=== PATIENT | male | born 2000 | race Caucasian/White ===

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

== ENCOUNTER 2022-10-21 15:04 | Emergency (ER) | payer OTHER, SELFPAY ==
[2022-10-21 15:30] VITALS: BP 144/80; PULSE 73; RESP 20; TEMP 36.6; O2SAT 99
--- NOTE | 2022-10-21 15:51 | EXP.UTC ---
Discharge Plan Disposition Patient Disposition: Home, Self-Care Condition: Good Prescriptions Prescriptions: New flyarqugjnhukiz-rkolrehsm-IZ [Bromfed DM] 2-30-10 mg/5 mL Syrup 10 ml PO Q4H PRN (Reason: Cough) Qty: 240 0RF guaifenesin [Mucinex] 600 mg tablet extended release 12hr 1,200 mg PO BID PRN (Reason: cough) Qty: 20 0RF azithromycin [Zithromax Z-Bucky] 250 mg tablet See Rx Instructions .ROUTE .COMPLEX 5 Days Qty: 6 0RF Rx Instructions: For 250 mg dose pack: take 500 mg today (day 1), then 250 mg for 4 days (days 2-5) prednisone [prednisone] 20 mg tablet 20 mg PO BID 5 Days Qty: 10 0RF albuterol sulfate [Proventil HFA] 90 mcg/actuation HFA aerosol inhaler 1 - 2 inh inhalation Q6H PRN (Reason: shortness of breath or wheezing) Qty: 8.5 0RF Referrals Follow up/Referrals: Donte Ramos MD [Primary Care Provider] - See instructions Activity Restrictions/Add. Instructions Additional Instructions/Restrictions: Start antibiotic today. Be sure to complete entire prescription even if feeling better Monitor temp. Tylenol every 4 hours as needed and / or ibuprofen every 6 hours as needed ( As long as your primary care physician has told you that it ok to take both. For fever/aches/pains ER if no less than 101 despite Tylenol or Motrin Humidifier/vaporizer or hot steamy shower Inhaler every 4-6 hours as needed like we discussed. If unsure how to use it, ask pharmacist to demonstrate how. Should help open airways and improve cough, wheezing, and shortness of breath Mucinex during the day for your cough and cough suppressant only at night. Be sure to drink lots of water. *Bromfed may cause drowsiness. Know how it effects you (your child) before driving, caring for small child, or sending your child to school. Not other antihistamines/allergy medications while taking bromfed *Start steroid tomorrow. Helps with inflammation therefore, cough and wheezing. Follow directions on the package. Reviewed side effects. Patient reports taking them before. Follow up IMMEDIATELY for new or worsening of symptoms OR no noticeable improvement over the next 48-72 hours. 911 immediately for any life threatening symptoms such as chest pain or difficulty breathing Clinical Impressions Clinical Impression: Bronchitis Sinusitis Qualifiers: Sinusitis location: unspecified location Chronicity: unspecified Qualified Code(s): J32.9 - Chronic sinusitis, unspecified Instructions Patient Instructions: Acute Bronchitis, DI for Sinusitis Discharge ED Provider: Charito Rutledge [facility] [place] General Stated complaint: congestion Mode of Arrival: Ambulatory Source of Information: Patient Limitations: No Limitations Time Seen by Provider: 10/21/22 15:51 Description of Symptoms (Recalled from Triage Doc. by RN): PATIENT C/O CHEST/SINUS CONGESTION, SOA, AND TIREDNESS SINCE WEDNESDAY HEENT Symptoms (Recalled from RN notes): Yes Resp Symptoms (Recalled from RN notes): Yes Skin Symptoms (Recalled from RN notes): No MS Symptoms (Recalled from RN notes): No Functional Status (Recalled from RN notes): WNL History of Present Illness Provider Complaint: Patient states that he has been having cough, chest congestion, sinus congestion and drainage and at times with walking distance feels SOA States that at times he will cough up some mucous States that today he wasnt feeling any better so he came in to get checked Related Data Previous Rx's Medication Instructions Recorded albuterol sulfate 90 mcg/actuation 1 - 2 inh inhalation Q6H PRN 10/21/22 aerosol inhaler (Proventil HFA) shortness of breath or wheezing #8.5 grams azithromycin 250 mg tablet See Rx Instructions PO .COMPLEX 5 10/21/22 (Zithromax Z-Bucky) days #6 tabs cvtbcbowooxudjv-kddrzogfxetzsce-WJ 10 ml PO Q4H PRN Cough #240 mL 10/21/22 2 mg-30 mg-10 mg/5 mL oral syrup (Bromfed DM) guaifenesin 600 mg table
[2022-10-21 16:15] VITALS: BP 144/80; PULSE 73; RESP 20; TEMP 36.6; O2SAT 99
== END 2022-10-21 16:30 | disposition home or self-care (01) ==
PROVIDERS: Emergency Provider Nurse Practitioner; PCP Family Medicine
DX: J20.9 Acute bronchitis, unspecified (principal); F17.210 Nicotine dependence, cigarettes, uncomplicated
CPT/HCPCS: 96372; 99212; 99214; G0463; J0696

== ENCOUNTER 2022-11-16 12:30 | Emergency (ER) | payer OTHER, SELFPAY ==
[2022-11-16 12:30] VITALS: BP 140/67; PULSE 80; RESP 16; TEMP 36.6; O2SAT 100; BMI 19.5
--- NOTE | 2022-11-16 12:41 | XR_ITS ---
FINAL REPORT CLINICAL HISTORY: pain, stepped thru box FINDINGS: Right foot Three views were obtained. There is no acute fracture or dislocation. The joint spaces appear normal. No soft tissue abnormality is identified. IMPRESSION: No acute process. Reviewed, Interpreted and Dictated by Tamir Koch III, MD Transcribed by Dina Zeng Authenticated and [facility]
--- NOTE | 2022-11-16 12:41 | XR_ITS ---
FINAL REPORT CLINICAL HISTORY: painin heel, stepped thru box FINDINGS: Right ankle Three views were obtained. There is no acute fracture or dislocation. The joint spaces appear normal. No soft tissue abnormality is identified. IMPRESSION: No acute process. Reviewed, Interpreted and Dictated by Tamir Koch III, MD Transcribed by Dina Zeng Authenticated and [facility]
--- NOTE | 2022-11-16 12:45 | EXP.UTC ---
Discharge Plan Disposition Patient Disposition: Home, Self-Care Condition: Good Prescriptions Prescriptions: No Action yqexnhzulpydvuy-cdvjegion-TD [Bromfed DM] 2-30-10 mg/5 mL Syrup 10 ml PO Q4H PRN (Reason: Cough) Qty: 240 0RF guaifenesin [Mucinex] 600 mg tablet extended release 12hr 1,200 mg PO BID PRN (Reason: cough) Qty: 20 0RF azithromycin [Zithromax Z-Bucky] 250 mg tablet See Rx Instructions .ROUTE .COMPLEX 5 Days Qty: 6 0RF Rx Instructions: For 250 mg dose pack: take 500 mg today (day 1), then 250 mg for 4 days (days 2-5) prednisone [prednisone] 20 mg tablet 20 mg PO BID 5 Days Qty: 10 0RF albuterol sulfate [Proventil HFA] 90 mcg/actuation HFA aerosol inhaler 1 - 2 inh inhalation Q6H PRN (Reason: shortness of breath or wheezing) Qty: 8.5 0RF Referrals Follow up/Referrals: Miguel A Santos DO [Staff Physician] - See instructions Sara Palencia DPM [Staff Physician] - See instructions Donte Ramos MD [Primary Care Provider] - See instructions Activity Restrictions/Add. Instructions Additional Instructions/Restrictions: *No weight bearing *RICE, Rest the extremity, Ice 15-20 minutes 3-4 times daily, Compress- wear the shona wrap as discussed as much as possible to help reduce swelling and pain, Elevate the extremity when at rest *Walking boot is for support and help control swelling, use it except in the shower. Be sure that is not to tight but not to loose either *Elevate when resting? *Ibuprofen 600-800mg every 6-8 hours as needed for pain an inflammation. If need something more can take Tylenol in between doses of Ibuprofen to help Immediately follow up with your family doctor for new or worsening of symptoms, or no noticeable improvement over the next 3-5 days Follow up with Podiatry or Orthopedics You was given the number and two providers above to call the office for appoitment Clinical Impressions Clinical Impression: Contusion of foot Qualifiers: Encounter type: initial encounter Laterality: right Qualified Code(s): S90.31XA - Contusion of right foot, initial encounter Stand Alone Forms Stand Alone Forms: Work/School Release Instructions Patient Instructions: How to Use Crutches, How To Perform RICE (Rest, Ice, Compress, Elevate), How to Use a Walking Boot Discharge ED Provider: Charito Rutledge [facility] [place] HPI General Stated complaint: AO 11/15, right foot pain Mode of Arrival: Ambulatory Source of Information: Patient Limitations: No Limitations Time Seen by Provider: 11/16/22 12:45 Description of Symptoms (Recalled from Triage Doc. by RN): Patient states he stomped down his right foot on concrete and now he can't apply pressure to his heel, can't bend his toes and it is swollen. HEENT Symptoms (Recalled from RN notes): No Resp Symptoms (Recalled from RN notes): No Skin Symptoms (Recalled from RN notes): No MS Symptoms (Recalled from RN notes): Yes Functional Status (Recalled from RN notes): wnl History of Present Illness Provider Complaint: Patient states that yesterday he hurt his finger on and box and got aggravated and went to stomp on the box and his foot went through it and hit the concrete States that now he is having pain and swelling with bruising that starts around midfoot and goes back into his heel and ankle area States that he has bruising around the bottom of his foot and heel area Related Data Previous Rx's Medication Instructions Recorded albuterol sulfate 90 mcg/actuation 1 - 2 inh inhalation Q6H PRN 10/21/22 aerosol inhaler (Proventil HFA) shortness of breath or wheezing #8.5 grams azithromycin 250 mg tablet See Rx Instructions PO .COMPLEX 5 10/21/22 (Zithromax Z-Bucky) days #6 tabs jbfnyfzymyopgwr-nuxjjrhoknxszlt-VX 10 ml PO Q4H PRN Cough #240 mL 10/21/22 2 mg-30 mg-10 mg/5 mL oral syrup (Bromfed DM) guaifenesin 600 mg tablet, 1,200 mg PO BID PRN cough #20 tabs 10/21/22 extended release 12 hr (Mucinex) prednisone 20 mg tablet 20
--- NOTE | 2022-11-16 12:48 | XR_ITS ---
FINAL REPORT CLINICAL HISTORY: pain in heel, stepped thru box FINDINGS: Right calcaneus Two views were obtained. There is no acute fracture or dislocation. The joint spaces appear normal. No soft tissue abnormality is identified. IMPRESSION: No acute process. Reviewed, Interpreted and Dictated by Tamir Koch III, MD Transcribed by Dina Zeng Authenticated and . [facility]
[2022-11-16 14:44] VITALS: BP 140/67; PULSE 80; RESP 16; TEMP 36.6; O2SAT 100
== END 2022-11-16 14:44 | disposition home or self-care (01) ==
PROVIDERS: Emergency Provider Nurse Practitioner; PCP Family Medicine
DX: S90.31XA Contusion of right foot, initial encounter (principal); F17.210 Nicotine dependence, cigarettes, uncomplicated; W22.8XXA Striking against or struck by other objects, initial encounter
CPT/HCPCS: 73610; 73630; 73650; 99212; 99214; G0463

== ENCOUNTER 2023-06-29 19:55 | Emergency (ER) | payer BC, OTHER, SELFPAY ==
[2023-06-29 19:57] VITALS: BP 141/71; PULSE 102; RESP 14; TEMP 37.6; O2SAT 100
[2023-06-29] MEDS: ACETAMINOPHEN 500MG TAB 1000 MG PO (20:22)
--- NOTE | 2023-06-29 20:22 | ED_ITS ---
Discharge Plan Disposition Patient Disposition: Home, Self-Care Condition: Good Prescriptions Prescriptions: New promethazine 25 mg tablet 25 mg PO Q6H PRN (Reason: nausea and vomiting) Qty: 12 0RF No Action [id number]-[id number] [Bromfed DM] 2-30-10 mg/5 mL Syrup 10 ml PO Q4H PRN (Reason: Cough) Qty: 240 0RF guaifenesin [Mucinex] 600 mg tablet extended release 12hr 1,200 mg PO BID PRN (Reason: cough) Qty: 20 0RF azithromycin [Zithromax Z-Bucky] 250 mg tablet See Rx Instructions .ROUTE .COMPLEX 5 Days Qty: 6 0RF Rx Instructions: For 250 mg dose pack: take 500 mg today (day 1), then 250 mg for 4 days (days 2-5) prednisone [prednisone] 20 mg tablet 20 mg PO BID 5 Days Qty: 10 0RF albuterol sulfate [Proventil HFA] 90 mcg/actuation HFA aerosol inhaler 1 - 2 inh inhalation Q6H PRN (Reason: shortness of breath or wheezing) Qty: 8.5 0RF Referrals Follow up/Referrals: Donte Ramos MD [Primary Care Provider] - See instructions Activity Restrictions/Add. Instructions Additional Instructions/Restrictions: You were evaluated in the emergency department today. 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 Hydrate is much as possible. Eat a bland diet once you are able to tolerate solids. Return to the emergency department for any new or worsening symptoms. Clinical Impressions Clinical Impression: Gastroenteritis Stand Alone Forms Stand Alone Forms: Work/School Release Instructions Patient Instructions: DI for Diarrhea and Traveler's Diarrhea -- Adult, DI for Nausea -- Adult Discharge ED Provider: Neris Ruiz General Adult HPI General Chief complaint: Nausea/Vomiting/Diarrhea Stated complaint: Vomiting,body aches Time Seen by Provider: 06/29/23 19:59 Mode of Arrival: Ambulatory Source of Information: Patient Limitations: No Limitations Description of Symptoms (Recalled from ER Triage Doc. by RN): patient ambulatory to ED with complaints of vomiting and body aches since 0100 this am. Patient states that he has been attempting to hydrate with fluids but unable to keep anything down. patient reports that he believes that he has had fevers but did not use thermometer. History of Present Illness HPI narrative: This patient is a 23-year-old male who denies significant past medical history presenting to the emergency department for evaluation with concern for vomiting and bodyaches that started around 1:00 this morning. He notes that he had been around a bunch of children that had a stomach bug recently. He is also had subjective fevers and chills. He states he has been trying to hydrate with fluids but has not been able to eat. He has not had an appetite. He states that he feels extremely bloated. He took Zofran at home with some improvement and has not vomited since, but he still feels like he needs to get sick. He notes that he has not had any significant localizable abdominal pain and has had no prior abdominal surgeries. No changes in bowel movements. Related Data Previous Rx's Medication Instructions Recorded albuterol sulfate 90 mcg/actuation 1 - 2 inh inhalation Q6H PRN 10/21/22 aerosol inhaler (Proventil HFA) shortness of breath or wheezing #8.5 grams azithromycin 250 mg tablet See Rx Instructions PO .COMPLEX 5 10/21/22 (Zithromax Z-Bucky) days #6 tabs vfsozwbntcdkwku-lskzmkjofpezgaw-VS 10 ml PO Q4H PRN Cough #240 mL 10/21/22 2 mg-30 mg-10 mg/5 mL oral syrup (Bromfed DM) guaifenesin 600 mg tablet, 1,200 mg (2 x 600 mg) PO BID PRN 10/21/22 extended release 12 hr (Mucinex) cough #20 tabs prednisone 20 mg tablet 20 mg PO BID 5 days #10 tabs 10/21/22 promethazine 25 mg tablet 25 mg PO Q6H PRN nausea and 06/29/23 vomiting #12 tabs Allergies Allergy/AdvReac Type Severity Reaction Status Date / Time No Known Allergies Allergy Verified 05/27/17 19:[address] [facility] Disclaimer: The information contained in this section may have been updated after the patient was seen, as this information can be updated by other users. Social History Smoking Status: Current every day smoker tobacco type: cigarettes packs per day: 1 alcohol intake: never current occupational status: unemployed Travel in the last 8 weeks: None ROS Obtained: Yes All systems reviewed & no additional complaints except as documented Physical Exam General General appearance: alert and in no apparent distress Head Head exam: atraumatic and normocephalic Eye Eye exam: Present normal appearance, PERRL and EOMI ENT ENT exam: Present normal exam, normal oropharynx, mucous membranes moist and normal external ear exam Neck Neck exam: Present normal inspection, full ROM and trachea midline; Absent tenderness Chest Chest inspection: Present normal inspection and symmetric chest wall rise; Absent tenderness Respiratory Respiratory exam: Present normal lung sounds bilaterally; Absent respiratory distress, wheezes, stridor or accessory muscle use Cardiovascular Cardiovascular exam: Present regular rate and normal rhythm Abdominal Exam Abdominal exam: Present soft and normal bowel sounds; Absent distention, tenderness, guarding, rebound or rigidity Extremities Exam Extremities exam: Present normal inspection, full ROM and normal capillary refill; Absent tenderness or edema Back Exam Back exam: Present normal inspection and full ROM; Absent tenderness Neurological Exam Neurological exam: Present alert, oriented X3, CN II-XII intact and normal gait; Absent motor sensory deficit Psychiatric Psychiatric exam: Present normal affect and normal mood Skin Skin exam: Present warm and dry Medical Decision Making Medical Records Medical records reviewed: Yes I reviewed the patient's medical records. John Inquiry Pt receiving controlled substance: No Vital Signs: 06/29/23 19:57 Temperature 99.6 F Temperature Source Oral Pulse Rate [Right] 102 H Respiratory Rate 14 Blood Pressure [Right Arm] 141/71 H Blood Pressure Mean [Right Arm] 94 Blood Pressure Source [Right Arm] Automatic Cuff Blood Pressure Position [Right Arm] Sitting 02 Sat by Pulse Oximetry 100 Oxygen Delivery Method Room Air Lab Data Lab results reviewed: Yes I reviewed the patient's lab results. Orders (Tests/Meds): ED MEDICATIONS Discontinued Medications Generic Name Dose Route Start Last Admin Trade Name Freq PRN Reason Stop Dose Admin Acetaminophen 1,000 mg 06/29/23 20:16 06/29/23 20:22 Acetaminophen 500mg Tab PO 06/29/23 20:17 1,000 mg ONCE ONE Administration Ibuprofen 800 mg 06/29/23 20:16 06/29/23 20:23 Ibuprofen 400 Mg Tablet PO 06/29/23 20:17 800 mg ONCE ONE Administration Ondansetron HCl 4 mg 06/29/23 20:09 06/29/23 20:23 Ondansetron 4mg Odt SL 06/29/23 20:10 Not Given ONCE ONE Promethazine HCl 25 mg 06/29/23 20:16 06/29/23 20:23 Promethazine 25mg Tablet PO 06/29/23 20:17 25 mg ONCE ONE Administration Medical Decision Narrative: In summary, this patient is a 23-year-old male presenting to the Emergency Department for evaluation of nausea and vomiting since 1:00 this morning. Differential diagnoses considered include but are not limited to gastroenteritis, colitis, enteritis, dehydration, cholecystitis, appendicitis. Ruling out the most morbid conditions drove assessment. On exam, the patient is well-appearing. Abdominal exam is benign with no tenderness, guarding, or other concerns. He does not have any significant distention. Given that he was around multiple children that had similar symptoms, feel he most likely has viral gastroenteritis. He has had Zofran at home with some improvement, but he continues to have nausea. Given this, oral Phenergan was ordered. For his body aches, oral Tylenol and ibuprofen were giv en. Will assess the patient's ability to keep medications down and tolerate liquids. On reassessment, the patient was able to take medications and drink liquids without any significant issue. He is feeling a little bit better. Given this, I feel it is appropriate for discharge with prescription for Phenergan and instructions for supportive management of likely viral gastroenteritis. Strict return precautions were given, the patient was discharged in stable condition after all questions were answered. Critical Care Critical Care Time Critical Care Time: No
[2023-06-29] MEDS: PROMETHAZINE 25MG TABLET 25 MG PO (20:23)
[2023-06-29] MEDS: IBUPROFEN 400 MG TABLET 800 MG PO (20:23)
[2023-06-29 20:59] LABS: Coronavirus 19, PCR Not Detected (NotDetected); Influenza A, PCR Not Detected (NotDetected); Influenza B, PCR Not Detected (NotDetected)
[2023-06-29 21:10] VITALS: BP 131/76; PULSE 87; RESP 16; TEMP 37.1; O2SAT 100
== END 2023-06-29 21:11 | disposition home or self-care (01) ==
PROVIDERS: Emergency Provider Emergency Medicine; PCP Family Medicine
DX: K52.9 Noninfective gastroenteritis and colitis, unspecified (principal); F17.210 Nicotine dependence, cigarettes, uncomplicated
CPT/HCPCS: 87636; 99283